=== PATIENT | female | born 1995 | race Two or more races ===

== ENCOUNTER → 2020-05-01 | Outpatient (REF) | payer OTHER ==
[~2020-05-01] MED LIST: FOLI0.4T PO; MULTTAB20 PO; REGL10TA6 PO
== END ==
LOC: M SFHCLERA 15:52
PROVIDERS: ATTEND Student in an Organized Health Care Education/Training Program
DX: Z20.2 Contact with and (suspected) exposure to infections with a predominantly sexual mode of transmission (principal)

== ENCOUNTER 2020-05-12 21:26 | Emergency (ER) | payer OTHER ==
[~2020-05-12] VITALS: Ht 172.7 cm; Wt 74.0 kg
[2020-05-12] MEDS ORDERED: FOLI0.4T PO (21:37)
[2020-05-12] MEDS ORDERED: MULTTAB20 PO (21:37)
[2020-05-12 22:41] LABS: BASO # 0.1 10^3/uL (0.0-0.2); BASO % 0.6 % (0.0-1.0); EOS # 0.1 10^3/uL (0.0-0.5); EOS % 1.1 % (0.0-3.0); HEMATOCRIT 38.2 % (36.0-47.0); HEMOGLOBIN 12.2 g/dl (12.0-15.5); LYMPH # 2.2 10^3/uL (1.5-5.0); LYMPH % 23.8 % (24.0-44.0); MEAN CORPUSCULAR HEMOGLOBIN 26.4 pg (27.0-33.0); MEAN CORPUSCULAR HGB CONC 31.9 g/dl (32.0-36.5); MEAN CORPUSCULAR VOLUME 82.7 fl (80.0-96.0); MONO # 0.7 10^3/uL (0.0-0.8); MONO % 7.6 % (0.0-5.0); NEUTROPHILS # 6.2 10^3/uL (1.5-8.5); NEUTROPHILS % 66.7 % (36.0-66.0); PLATELET COUNT, AUTOMATED 373 10^3/uL (150-450); RED BLOOD COUNT 4.62 10^6/uL (4.00-5.40); WHITE BLOOD COUNT 9.3 10^3/uL (4.0-10.0)
--- NOTE | 2020-05-12 22:53 | REPVR ---
PROCEDURE INFORMATION: Exam: US First Trimester, Transabdominal Exam date and time: 05/12/2020 10:43 PM Age: 24 years old Clinical indication: Lmp or gestational age (in weeks): 7w 3d; Other: Vaginal spotting/ cramping; ; Additional info: Spotting/cramping TECHNIQUE: Imaging protocol: Real-time transabdominal obstetrical ultrasound of the maternal pelvis and a first trimester , less than 14 weeks 0 days, with image documentation. COMPARISON: No relevant prior studies available. FINDINGS: Gestation: Single gestational sac demonstrated in the uterine fundus. Active motion demonstrated. Yolk sac measures 5 mm. Embryonic/ heart rate: heart rate 155 bpm. Placenta: Unremarkable. No subchorionic bleed. Amniotic fluid: Amniotic fluid is normal for gestational age. BIOMETRY: Gestational age (AUA): Gestational age based on crown-rump length is 7 weeks 3 days which corresponds to LMP of 03/21/2020. [place]-Rump length: Single fetus demonstrated with a crown-rump length of 12 mm. MATERNAL: Uterus: Unremarkable. Cervix: Unremarkable. Right adnexa: Small cyst in the right ovary measures 1.2 x 1.8 x 1.4 cm, likely functional. Left adnexa: Unremarkable. Intraperitoneal space: No intraperitoneal free fluid. IMPRESSION: Unremarkable 1st trimester scan at 7 weeks 3 days. Electronically signed by: Paco Reyes On 05/12/2020 22:52:32 PM
[2020-05-12] MEDS ORDERED: NS 1,000 ML IV ONE (23:00)
[2020-05-12 23:24] LABS: BLOOD UREA NITROGEN 6 MG/DL (7-18); CALCIUM LEVEL 9.2 MG/DL (8.5-10.1); CARBON DIOXIDE LEVEL 26 MEQ/L (21-32); CHLORIDE LEVEL 106 MEQ/L (98-107); CREATININE FOR GFR 0.75 MG/DL (0.55-1.30); GLOMERULAR FILTRATION RATE > 60.0 (>60); GLUCOSE, FASTING 107 MG/DL (70-100); POTASSIUM SERUM 3.5 MEQ/L (3.5-5.1); SODIUM LEVEL 138 MEQ/L (136-145)
[2020-05-12 23:25] LABS: HCG, SERUM QUANTITATIVE 101661 MIU/ML
[2020-05-12] MEDS ORDERED: REGL10TA6 PO (23:44)
[2020-05-13 00:15] VITALS: BP 111/66
== END 2020-05-13 00:16 | disposition home or self-care (01) ==
LOC: M ED 21:26
DX: O21.8 Other vomiting complicating pregnancy (principal); Z3A.01 Less than 8 weeks gestation of pregnancy; O26.851 Spotting complicating pregnancy, first trimester; R51.9 Headache, unspecified; O26.891 Other specified pregnancy related conditions, first trimester; R42 Dizziness and giddiness; R10.2 Pelvic and perineal pain; M54.5 Low back pain; Z91.012 Allergy to eggs; Z79.899 Other long term (current) drug therapy

== ENCOUNTER → 2020-06-05 | Outpatient (REF) | payer OTHER ==
[~2020-06-05] MED LIST changes: -FOLI0.4T PO; +FOLI0.4T5 PO
[2020-06-05 17:39] LABS: HEMATOCRIT 37.8 % (36.0-47.0); HEMOGLOBIN 12.2 g/dl (12.0-15.5); MEAN CORPUSCULAR HEMOGLOBIN 26.8 pg (27.0-33.0); MEAN CORPUSCULAR HGB CONC 32.3 g/dl (32.0-36.5); MEAN CORPUSCULAR VOLUME 83.1 fl (80.0-96.0); PLATELET COUNT, AUTOMATED 367 10^3/uL (150-450); RED BLOOD COUNT 4.55 10^6/uL (4.00-5.40); WHITE BLOOD COUNT 7.2 10^3/uL (4.0-10.0)
[2020-06-05 18:40] LABS: HIV 1&2 SCREEN CENTAUR NEGATIVE (NEGATIVE)
== END ==
LOC: M PLALAB 14:27
PROVIDERS: ATTEND Advanced Practice Midwife
DX: Z34.01 Encounter for supervision of normal first pregnancy, first trimester (principal)

== ENCOUNTER → 2020-07-03 | Outpatient (CLI) | payer OTHER | LOC: M PLALAB 14:17 | PROVIDERS: ATTEND Obstetrics & Gynecology | DX: Z13.79 Encounter for other screening for genetic and chromosomal anomalies (principal) ==

== ENCOUNTER → 2020-07-03 | Outpatient (CLI) | payer OTHER | LOC: M WHC 13:48 | PROVIDERS: ATTEND Obstetrics & Gynecology | DX: Z34.92 Encounter for supervision of normal pregnancy, unspecified, second trimester (principal); Z3A.14 14 weeks gestation of pregnancy; Z53.9 Procedure and treatment not carried out, unspecified reason ==

== ENCOUNTER → 2020-07-19 | Outpatient (CLI) | payer OTHER | LOC: M LABSMTC 13:16 | PROVIDERS: ATTEND Pediatrics | DX: Z20.822 Contact with and (suspected) exposure to COVID-19 (principal) ==

== ENCOUNTER → 2020-08-06 | Outpatient (CLI) | payer OTHER ==
--- NOTE | 2020-08-06 15:23 | REP ---
INDICATION: ANATOMY COMPARISON: None. TECHNIQUE: Transabdominal obstetrical ultrasound with color Doppler evaluation. FINDINGS: Examination demonstrates a single live intrauterine in cephalic presentation. motion is identified by technologist. Placenta is noted posterior and grade 1 without evidence for placenta previa or abruption. Amniotic fluid volume is normal. Cervix measures 3.1 cm in length and appears closed.. Gestational age by LMP 19 weeks 5 days with MAGDI 12/26/2020. Gestational age by current measurements 19 weeks 3 days with MAGDI 12/28/2020. FHR equals 147 beats per minute. Estimated weight 301 grams (39thpercentile). Anatomical assessment demonstrates normal structures including cranium, choroid plexus, cavum, cerebellum/posterior fossa, facial features, lungs, four-chamber heart/ventricular outflow tracts, diaphragm, stomach, cord insertion/three-vessel cord, kidneys/bladder, spine, and extremities. IMPRESSION: Single live intrauterine in cephalic presentation demonstrating appropriate estimated weight and growth. Anatomical assessment is complete and normal. <Electronically signed by Reagan Freire > 08/06/20 [id number]
== END ==
LOC: M WHC 08:53
PROVIDERS: ATTEND Obstetrics & Gynecology
DX: Z36.3 Encounter for antenatal screening for malformations (principal); Z3A.19 19 weeks gestation of pregnancy
CPT/HCPCS: 76811; G0463

== ENCOUNTER → 2020-09-25 | Outpatient (REF) | payer OTHER ==
[2020-09-25 12:14] LABS: HEMATOCRIT 30.5 % (36.0-47.0); HEMOGLOBIN 9.5 g/dl (12.0-15.5); MEAN CORPUSCULAR HEMOGLOBIN 27.1 pg (27.0-33.0); MEAN CORPUSCULAR HGB CONC 31.1 g/dl (32.0-36.5); MEAN CORPUSCULAR VOLUME 86.9 fl (80.0-96.0); PLATELET COUNT, AUTOMATED 383 10^3/uL (150-450); RED BLOOD COUNT 3.51 10^6/uL (4.00-5.40); WHITE BLOOD COUNT 9.1 10^3/uL (4.0-10.0)
== END ==
LOC: M PLALAB 09:29
PROVIDERS: ATTEND Obstetrics & Gynecology
DX: Z36.89 Encounter for other specified antenatal screening (principal)

== ENCOUNTER → 2020-12-04 | Outpatient (REF) | payer OTHER | LOC: M SFHCWAGY 13:11 | PROVIDERS: ATTEND Advanced Practice Midwife | DX: Z34.03 Encounter for supervision of normal first pregnancy, third trimester (principal); Z3A.36 36 weeks gestation of pregnancy | CPT/HCPCS: 87081; G0463 ==

== ENCOUNTER 2020-12-18 22:25 | Inpatient (IN) | payer OTHER ==
[~2020-12-18] VITALS: Ht 175.3 cm; Wt 94.5 kg
[2020-12-18 22:42] VITALS: BP 135/71
[2020-12-18] MEDS ORDERED: LACTATED RINGER'S 1000 ML IV STA (22:51)
[2020-12-18] MEDS ORDERED: BUTORPHANOL 2 MG/ML INJ (J0595) IV ONE (22:55)
[2020-12-18] MEDS ORDERED: OXYTOCIN DRIP 30 UNITS in IV 1 EA IV PRN (22:55)
[2020-12-18] MEDS ORDERED: LR 1,000 ML IV SCH (22:55)
[2020-12-18] MEDS ORDERED: LIDOCAINE 1% MDV 20ML VIAL INFIL PRN (22:55)
[2020-12-18] MEDS ORDERED: PROMETHAZINE INJ 25 MG/ML VIAL (J2550) IV ONE (22:55)
--- NOTE | 2020-12-18 23:07 | HPEPDOC ---
Obstetrical History & Physical General Date of Admission 18 December 2020 History of Present Illness Mars is a 25yo with SIUP at 38w6d by lmp c/w 10wk u/s presenting to L&D with CC of regular, painful ctx that have been increasing in pain over the course of the day and now occurring every 5 min. Good movement. No LOF. No vaginal bleeding. 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 , History of STD (chlamydia) Past Medical History Medical History benign Surgical History: Denies/None Family History Significant Family History: No pertinent family hx Social History Marital Status: Family situation: Spouse/partner home Psychosocial History: No pertinent psych hx * Smoker: non-smoker Alcohol: Denies Drugs: denies Imunizations Tdap status: current Allergies Coded Allergies: egg (Verified Allergy, Intermediate, ITCHY, 05/12/20) Medications Scheduled Folic Acid (Folic Acid) 0.4 Mg Tablet, 1 TAB PO DAILY No122/Iron/Folic Acid ( Multi Tablet) 1 Each Tablet, 1 TAB PO DAILY Scheduled PRN Metoclopramide HCl (Reglan) 10 Mg Tablet, 10 MG PO Q6H PRN for NAUSEA Physical Examination Physical Examination GENERAL: Alert and oriented times three. ABDOMEN: Gravid and non-tender to touch. FETUS: Is vertex (VTX) by sterile vaginal examination (SVE) EXTREMITIES: No edema BLE Pertinent Laboratoy Data Blood Type: B+ RBC Antibody Screen: Negative HIV: Negative Hepatitis B: Negative Hepatitis C: Negative Rapid Plasma Reagin: Nonreactive Rubella: Immune Chlamydia/Gonorrhea: Negative Group B Streptococcus: Negative Glucose Tolerance Test: 88 Anatomy Ultrasound Ultrasound Date: Aug 06, 2020 Placenta Location: Posterior Normal Anatomy: Yes Placenta Previa: No Steroid Therapy Steroid Therapy: No Vaginal Examination Dilation: 4 cm Effacement: 80% Station: -2 Cervical Consistency: Soft Cervical Position: Posterior Presentation: Cephalic presentation Assessment Heart Rate (FHR): 130 Variability: Moderate Accelerations: Positive Decelerations: None Tocometer Contractions: Yes Frequency: regular, every 2-5 min. Duration: greater than 60 seconds Strength: palpated as strong Assessment/Plan Assessment Mars is a 25yo with SIUP at 38w6d by lmp c/w 10wk u/s in active labor with SCE 4-5/80/-2 and regular painful ctx. Cat I FHRT. Vitals wnl, benign exam. GBS neg. Cephalic by SCE. PMhx and PNC only complicated by anemia. Plan Admit and orient. 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 Diet: clear liquids Group B Streptococcus (GBS) negative Labs and intravenous (IV) per unit protocol. Lactated Ringers (LR): Bolus 800 mL, then at 125 mL/hr prior to epidural if desired Anticipate normal spontaneous delivery () Safe to proceed MD Jocelyne Ramírez Katrina D MD Dec 18, 2020 23:07
[2020-12-18 23:15] LABS: HEMATOCRIT 39.3 % (36.0-47.0); HEMOGLOBIN 12.6 g/dl (12.0-15.5); MEAN CORPUSCULAR HEMOGLOBIN 27.6 pg (27.0-33.0); MEAN CORPUSCULAR HGB CONC 32.1 g/dl (32.0-36.5); PLATELET COUNT, AUTOMATED 369 10^3/uL (150-450); RED BLOOD COUNT 4.57 10^6/uL (4.00-5.40); WHITE BLOOD COUNT 12.4 10^3/uL (4.0-10.0)
[2020-12-19] VITALS (15 sets, daily range): BP systolic 104–142; BP diastolic 54–90
[2020-12-19] MEDS ORDERED: OXYTOCIN 30 UNITS IN 0.9% NaCl 500ML IV BAG (J2590) As Ordered ONE (04:11)
--- NOTE | 2020-12-19 05:02 | DNPDOC ---
[facility] Delivery Note Delivery Note DATE OF DELIVERY: 12/19/20 PREDELIVERY DIAGNOSIS: 38w6d gestation and labor. POST DELIVERY DIAGNOSIS: Delivered. PROCEDURE: Spontaneous vaginal delivery TABLE GAMES DUAL RATE SUPERVISOR: Dr. Brooke Casanova MD ANESTHESIA: 1% lidocaine for repair ESTIMATED BLOOD LOSS: 300 mL. FINDINGS: 8 pound 1 ounce (3650g) male , Score 8/9, nuchal cord times 1 DELIVERY SUMMARY: Mars is a 25yo [id number] s/p uncomplicated at 38w6d, delivering at 0415 on 12/19/20. She was 4-5/75/-2 on presentation and progressed completely on her own power. She had SROM, clear at 9cm and at C/C/0, she began pushing. With good maternal effort, 's head delivered OA, restituted EUNICE. Loose nuchal cord reduced. Right anterior shoulder delivered followed by posterior shoulder and corpus. Terminal meconium noted. Infant was slightly stunned, placed on maternal abdomen to clamp cord x2 and cut, immediately then taken to warmer for suctioning. Spontaneous cry noted and infant was vigorous, apgars 8/9. Fundal massage was performed and traction was placed on the umbilical cord, placenta delivered spontaneously and intact with 3 vessel cord noted. At that point, IV pitocin was bolused per protocol. Uterine massage performed and fundus then firm at u-2cm. Inspection of perineum and vagina revealed a 1mll and bilateral labial lacerations which were repaired in routine fashion with 3-0 vicryl after anesthetizing with 1% lidocaine with excellent reapproximation and total hemos tasis noted. All counts were correct x2. Mom and baby were doing well when I left the room. MD Jocelyne Ramírez Katrina D MD Dec 19, 2020 05:02
[2020-12-19] MEDS ORDERED: RHOGAM 300 MCG (1500 IU) INJ (J2790) IM SCH (05:05)
[2020-12-19] MEDS ORDERED: ACETAMINOPHEN TAB 650MG DOSE (2X325MG) PO PRN (05:05)
[2020-12-19] MEDS ORDERED: ACETAMINOPHEN 500 MG TAB PO PRN (05:05)
[2020-12-19] MEDS ORDERED: MEASLES,MUMPS,RUBELLA VACCINE INJ (MMR-II) (90707) SC SCH (05:05)
[2020-12-19] MEDS: IBUPROFEN 800 MG TAB PO PRN ×2 (08:29→21:47)
[2020-12-19] MEDS: PRENATAL VITAMINS CHEWABLE TABLET PO SCH (09:51)
[2020-12-19] MEDS: DOCUSATE SODIUM 100MG CAPSULE PO SCH ×2 (09:51→20:11)
[2020-12-19] MEDS ORDERED: DIBUCAINE 1% OINTMENT 30GM TOP PRN (10:30)
[2020-12-20 06:20] VITALS: BP 108/54
[2020-12-20] MEDS: DOCUSATE SODIUM 100MG CAPSULE PO SCH ×2 (09:29→20:15)
[2020-12-20] MEDS: PRENATAL VITAMINS CHEWABLE TABLET PO SCH (09:29)
[2020-12-20] MEDS: IBUPROFEN 600MG TAB PO PRN ×2 (14:43→21:16)
[2020-12-20 17:55] VITALS: BP 112/55
[2020-12-21 06:00] VITALS: BP 119/57
[2020-12-21] MEDS: PRENATAL VITAMINS CHEWABLE TABLET PO SCH (07:42)
[2020-12-21] MEDS: DOCUSATE SODIUM 100MG CAPSULE PO SCH (07:42)
[2020-12-21] MEDS: IBUPROFEN 800 MG TAB PO PRN (07:42)
== END 2020-12-21 12:15 | disposition home or self-care (01) | DRG 807 ==
LOC: M LDO 22:25 → M LDI 12-19 00:07 → M OBS 12-19 08:16
PROVIDERS: ADMIT Obstetrics & Gynecology; ATTEND Obstetrics & Gynecology
PROC: 10E0XZZ Delivery of Products of Conception, External Approach (ICD-10-PCS; principal; 2020-12-19)
PROC: 0HQ9XZZ Repair Perineum Skin, External Approach (ICD-10-PCS; 2020-12-19)
DX: O99.02 Anemia complicating childbirth (principal); Z37.0 Single live birth; D64.9 Anemia, unspecified; Z3A.39 39 weeks gestation of pregnancy; O70.0 First degree perineal laceration during delivery; O69.81X0 Labor and delivery complicated by cord around neck, without compression, not applicable or unspecified

== ENCOUNTER → 2021-05-09 | Outpatient (CLI) | payer OTHER ==
[2021-05-09 17:46] LABS: BASO # 0.1 10^3/uL (0.0-0.2); BASO % 0.9 % (0.0-1.0); EOS # 0.3 10^3/uL (0.0-0.5); EOS % 5.2 % (0.0-3.0); HEMATOCRIT 40.6 % (36.0-47.0); HEMOGLOBIN 12.8 g/dl (12.0-15.5); LYMPH % 37.6 % (24.0-44.0); MEAN CORPUSCULAR HEMOGLOBIN 27.6 pg (27.0-33.0); MEAN CORPUSCULAR HGB CONC 31.5 g/dl (32.0-36.5); MEAN CORPUSCULAR VOLUME 87.5 fl (80.0-96.0); MONO # 0.3 10^3/uL (0.0-0.8); MONO % 6.3 % (2.0-8.0); NEUTROPHILS # 2.7 10^3/uL (1.5-8.5); NEUTROPHILS % 49.8 % (36.0-66.0); PLATELET COUNT, AUTOMATED 348 10^3/uL (150-450); RED BLOOD COUNT 4.64 10^6/uL (4.00-5.40); WHITE BLOOD COUNT 5.4 10^3/uL (4.0-10.0)
[2021-05-11 06:08] LABS: HEPATITIS B CORE ANTIBODY IGG Negative (Negative); HERPES ZOSTER, VARICELLA IgG 585 index (Immune >165); MUMPS VIRUS IgG ANTIBODY 19.3 AU/mL (Immune >10.9)
== END ==
LOC: M PLALAB 14:36
PROVIDERS: ATTEND Student in an Organized Health Care Education/Training Program
DX: Z00.00 Encounter for general adult medical examination without abnormal findings (principal)

== ENCOUNTER → 2022-06-04 | Outpatient (REF) | payer OTHER | LOC: M SFHCDERM 16:50 | PROVIDERS: ATTEND Nurse Practitioner Family | DX: L30.9 Dermatitis, unspecified (principal) | CPT/HCPCS: 87070; 87077; 87186; G0463 ==

== ENCOUNTER → 2022-06-19 | Outpatient (REF) ==
[2022-06-19 14:23] LABS: RSV AMPLIFICATION NEGATIVE (NEGATIVE)
== END ==
LOC: M LABSMTC 11:17
PROVIDERS: ATTEND Family Medicine
DX: Z20.818 Contact with and (suspected) exposure to other bacterial communicable diseases (principal)

== ENCOUNTER → 2022-07-10 | Outpatient (REF) | payer OTHER | LOC: M SFHCLERA 11:27 | PROVIDERS: ATTEND Student in an Organized Health Care Education/Training Program | DX: Z12.4 Encounter for screening for malignant neoplasm of cervix (principal) ==

== ENCOUNTER → 2022-08-05 | Outpatient (REF) ==
[2022-08-05 14:41] LABS: RSV AMPLIFICATION NEGATIVE (NEGATIVE)
== END ==
LOC: M EMP 12:33
PROVIDERS: ATTEND Family Medicine
DX: Z20.822 Contact with and (suspected) exposure to COVID-19 (principal)

== ENCOUNTER → 2023-01-01 | Outpatient (REF) | LOC: M EMP 14:38 | PROVIDERS: ATTEND Family Medicine | DX: Z11.52 Encounter for screening for COVID-19 (principal) ==